=== PATIENT | female | born 1960 | race American Indian/Alaskan Native ===

== ENCOUNTER 2017-06-22 11:52 | Outpatient (CLI) | payer MEDICARE, MEDICAID ==
--- NOTE | 2017-06-22 14:28 | Ultrasound Report ---
ULTRASOUND EXTREMITY NONVASCULAR LEFT History: Pain in left shoulder, evaluate for rotator cuff tear. Findings: No comparison exams at this facility. I spoke with and scanned this patient myself. The supraspinatus tendon is visualized and has a normal appearance on ultrasound. There is no evidence for large tear or detachment. The infraspinatus tendon and subscapularis tendon are partially visualized and demonstrate no discrete abnormality. The teres minor tendon could not be identified. There is no evidence for joint effusion, bursal fluid or fluid in the tendon sheaths. Impression: No rotator cuff abnormality detected on ultrasound. If further evaluation is needed, MRI left shoulder is recommended.
== END 2017-06-22 11:53 | disposition home or self-care (01) ==
LOC: US 11:52
DX: M25.512 Pain in left shoulder (principal)